=== PATIENT | male | born 1985 | race Caucasian/White ===

== ENCOUNTER 2021-02-14 11:57 | Emergency (ER) | payer MEDICAID, OTHER ==
[~2021-02-14] VITALS: Ht 175.3 cm; Wt 83.9 kg
[2021-02-14 12:16] VITALS: BP 107/72
== END 2021-02-14 12:59 | disposition home or self-care (01) ==
LOC: ER 11:57 → EDBD 11:57 → ER 12:59
DX: S21.111D Laceration without foreign body of right front wall of thorax without penetration into thoracic cavity, subsequent encounter (principal); F17.210 Nicotine dependence, cigarettes, uncomplicated; X58.XXXD Exposure to other specified factors, subsequent encounter